=== PATIENT | male | born 1950 | race Caucasian/White ===

== ENCOUNTER 2018-11-25 06:05 | Day surgery (SDC) | payer OTHER ==
[2018-11-25] MEDS ORDERED: BRIMONIDINE TARTRATE 0.2% OPTH SOL OP PRN (06:17)
[2018-11-25] MEDS ORDERED: LIDOCAINE 1% 20 ML MDV ID STA (06:17)
[2018-11-25] MEDS ORDERED: LIDOCAINE 1%/PHENYLEPHRINE 1.5% BSS (SURGERY) INTRAOCULA ONE (06:17)
[2018-11-25] MEDS ORDERED: ZOFRAN 4 MG/2 ML IVP ONE (06:17)
[2018-11-25] MEDS ORDERED: DEX-MOXI-KETOR OPTH INJ 1/0.5/0.4 MG/ML IO ONE (06:17)
[2018-11-25] MEDS ORDERED: BSS WITH EPINEPHRINE OP ONE (06:17)
[2018-11-25] MEDS: CYCLOGYL 2% OPTH OP PRN ×3 (06:30→06:40)
[2018-11-25] MEDS: BETADINE OPTH PREP OP PRN ×2 (06:30→07:14)
[2018-11-25] MEDS: TETRACAINE 0.5% UNIT-DOSE OP PRN ×2 (06:30→07:13)
[2018-11-25 06:42] VITALS: TEMP 97.8
[2018-11-25] MEDS ORDERED: VERSED ONE (07:15)
[2018-11-25] MEDS ORDERED: SUBLIMAZE ONE (07:15)
[2018-11-26 17:08] VITALS: BP 128/69
== END 2018-11-25 08:00 | disposition home or self-care (01) ==
LOC: SURG 06:05
PROVIDERS: ATTEND Ophthalmology
DX: H25.811 Combined forms of age-related cataract, right eye (principal)
CPT/HCPCS: 82962